=== PATIENT | female | born 1965 | race Asian ===

== ENCOUNTER → 2023-09-17 | Day surgery (SDC) | payer OTHER ==
[~2023-09-17] MED LIST: AUGMENTIN 500-1 EACH PO; DEXMEDETOMIDINE HCL 200 MCG/2 ML VIAL ONE; FAMOTIDINE20 MG PO; FENTANYL CITRATE/PF 100MCG/2 ML INJ ONE; LIDOCAINE HCL 2% LOCAL INJ 5 ML SDV VIAL INJ ONE; MULTI-VITAMIN1 EACH PO; PROPOFOL IV EMULSION 10 MG/ML 50 ML VIAL IV ONE
[2023-09-17] MEDS: LACTATED RINGER'S 1,000 ML ONE (11:33)
[2023-09-17 13:29] VITALS: TEMP 97.9
[2023-09-17 14:00] VITALS: BP 148/80; PULSE 60; RESP 16; O2SAT 98
[2023-09-17 15:25] LABS: WBC,FECAL (FECAL LACTOFERRIN) NEGATIVE (NEGATIVE)
== END | disposition home or self-care (01) ==
LOC: OR 10:38 → EDSEX 12:30
PROVIDERS: ATTEND Internal Medicine Gastroenterology
DX: K29.50 Unspecified chronic gastritis without bleeding (principal); D12.1 Benign neoplasm of appendix; K52.9 Noninfective gastroenteritis and colitis, unspecified; K20.90 Esophagitis, unspecified without bleeding; K21.9 Gastro-esophageal reflux disease without esophagitis; K44.9 Diaphragmatic hernia without obstruction or gangrene; K59.09 Other constipation; K62.89 Other specified diseases of anus and rectum; K64.8 Other hemorrhoids; Z71.3 Dietary counseling and surveillance; E78.5 Hyperlipidemia, unspecified; R03.0 Elevated blood-pressure reading, without diagnosis of hypertension; Z71.89 Other specified counseling; Z01.810 Encounter for preprocedural cardiovascular examination; Z80.0 Family history of malignant neoplasm of digestive organs
CPT/HCPCS: 43239; 45380; 83630; 83993; 86140; 87045; 87177; 87324; 87328; 87449; 93005; J2001; J2470; J2704; J3010; J7121; 45385